=== PATIENT | male | born 1960 | race Caucasian/White ===

== ENCOUNTER 2022-11-24 12:36 | Inpatient (IN) | payer MEDICAID ==
[~2022-11-24] VITALS: Ht 175.3 cm; Wt 80.3 kg
[2022-11-24 12:49] VITALS: BP 118/67
[2022-11-24] MEDS ORDERED: ACETAMINOPHEN EXTRA STRENGTH 500 MG TAB PO ONE (13:10)
[2022-11-24] MEDS ORDERED: ALBUTEROL SULFATE/IPRATROPIU 3 ML SOL IH ONE (13:10)
[2022-11-24] MEDS ORDERED: KETOROLAC 30 MG/ML VIAL IM ONE (13:10)
[2022-11-24 13:33] LABS: BASOPHILS % (AUTO) 0.2 % (0.0-2.0); EOSINOPHILS % (AUTO) 0.1 % (0.0-4.0); HEMATOCRIT 43.3 % (36-52); HEMOGLOBIN 14.1 g/dL (12.0-18.0); LYMPHOCYTES % (AUTO) 4.6 % (20.5-51.1); MEAN CORPUSCULAR HEMOGLOBIN 27 pg (27-31); MEAN CORPUSCULAR HGB CONC 33 g/dL (33-37); MEAN CORPUSCULAR VOLUME 81.2 fL (80-94); MONOCYTES # (AUTO) 1.4 K/uL (0.8-1.0); MONOCYTES % (AUTO) 6.3 % (1.7-9.3); NEUTROPHILS # (AUTO) 20.1 K/uL (1.8-7.7); NEUTROPHILS % (AUTO) 88.8 % (42.2-75.2); PLATELET COUNT (AUTO) 414 K/uL (140-450); RED BLOOD CELL COUNT(AUTO) 5.33 MIL/uL (4.20-6.10); RED CELL DISTRIBUTION WIDTH 14.3 % (11.6-13.7); WHITE BLOOD COUNT (AUTO) 22.7 K/uL (4.8-10.8)
--- NOTE | 2022-11-24 13:54 | NUR ---
Pt bibs for chest pain starting this morning. Pt states he has ache/sore pain, especially when he coughs. Pain is ache/sore, when coughing or with movement, non radiating, /10. Pt is a/o x 4, vss, no ss of acute distress, breathing equal and unlabored, speech clear. Labs obtained and handed to [employer] conservation laborer.
[2022-11-24] MEDS ORDERED: NACL 0.9% 1,000 ML IV ONE ×2 (14:05→15:15)
[2022-11-24] MEDS ORDERED: AZITHROMYCIN 500 MG in DEXTROSE 5% 250 ML IV ONE (14:05)
--- NOTE | 2022-11-24 14:07 | NUR ---
Covid swab obtained/labeled and walked to lab.
[2022-11-24 14:27] LABS: ALBUMIN 3.5 g/dL (3.4-5.0); CARBON DIOXIDE 29.4 mmol/L (21-32); CREATININE 1.2 mg/dL (0.6-1.3); POTASSIUM 4.4 mmol/L (3.5-5.1); TOTAL BILIRUBIN 0.8 mg/dL (0.0-1.0)
[2022-11-24] MEDS ORDERED: AZITHROMYCIN 500 MG INJ VIAL IV ONE (15:21)
[2022-11-24] MEDS ORDERED: cefTRIAXone 1,000 MG VIAL ONE (15:21)
[2022-11-24 15:59] LABS: BARBITURATE, URINE NEGATIVE ng/ml (NEG <=200); CANNABINOID, URINE POSITIVE ng/mL (NEG <=50)
[2022-11-24 16:00] LABS: BENZODIAZEPINE, URINE NEGATIVE ng/mL (NEG <=200); COCAINE, URINE NEGATIVE ng/mL (NEG <=300); OPIATE, URINE NEGATIVE ng/mL (NEG <=2000); PHENCYCLIDINE SCREEN,URINE NEGATIVE ng/mL (NEG <=25)
[2022-11-24] MEDS ORDERED: DOCUSATE SODIUM 100 MG GELCAP PO PRN (16:15)
[2022-11-24] MEDS ORDERED: POTASSIUM CHLORIDE 10 MEQ TABER PO PRN (16:15)
[2022-11-24] MEDS ORDERED: ZOLPIDEM 5 MG TAB PO PRN (16:15)
[2022-11-24] MEDS ORDERED: guaiFENesin DM 200/20 MG-10 ML 10 ML UDC PO PRN (16:15)
[2022-11-24] MEDS ORDERED: ONDANSETRON 4 MG/2 ML VIAL IM/IVP PRN (16:15)
[2022-11-24] MEDS ORDERED: ALBUTEROL SULFATE/IPRATROPIU 3 ML SOL IH PRN (16:15)
[2022-11-24 17:01] LABS: PROTHROMBIN TIME 10.9 secs (10.8-13.4)
[2022-11-24] MEDS: NACL 0.9% 1,000 ML IV SCH (18:14)
[2022-11-24 18:42] LABS: CHOL/HDL RATIO 2.4 (1-4.5); MAGNESIUM 1.5 mg/dL (1.8-2.4); PHOSPHORUS 3.8 mg/dL (2.5-4.9); THYROID STIMULATING HORMONE 0.5 uIU/mL (0.34-3.74)
[2022-11-24 19:15] LABS: FREE T4 (FREE THYROXINE) 0.91 ng/dL (0.76-1.46)
--- NOTE | 2022-11-24 19:31 | NUR ---
PT IN ROOOM RESTING, ALERT AND RESPONSIVE
[2022-11-24] MEDS: ALBUTEROL SULFATE/IPRATROPIU 3 ML SOL IH SCH (19:46)
--- NOTE | 2022-11-24 21:00 | NUR ---
pt in room resting on monitoring analyst
--- NOTE | 2022-11-24 21:15 | NUR ---
DAUGHTER OF PT (SHANKAR CASTAÑEDA) # [phone]
--- NOTE | 2022-11-24 21:44 | NUR ---
report given to maryjo tucker
--- NOTE | 2022-11-24 21:55 | NUR ---
Received report from ED RN HC. Bed ready for pt.
--- NOTE | 2022-11-24 22:22 | NUR ---
Patient will be admitted to care of Dr. Johnson. Admited to Tele. Will go to room 111B. Belongings list completed. Report to Alessio CHAVIS.
[2022-11-25] VITALS: BP 127/76
[2022-11-25] MEDS: NACL 0.9% 1,000 ML IV SCH ×2 (02:15→12:15)
[2022-11-25] MEDS ORDERED: MAG SULF 2000 MG/WATER PREMIX 50 ML IV PRN (02:30)
[2022-11-25] MEDS: ACETAMINOPHEN 325 MG TAB PO PRN (04:37)
--- NOTE | 2022-11-25 05:42 | NUR ---
IV SITE INFILTRATED, LEAKING, AND DISLODGED. ATTEMPTED X2 - BOTH FAILED. WILL ENDORSE TO DAY RN FOR F/U.
--- NOTE | 2022-11-25 05:48 | NUR ---
PT RECEIVED FROM ER ABOUT 2155. pT WAS GIVEN ONE DUO TX IN THE ER. NEXT TX DUE AT 0700. AT 2350 PATIENT COMPLAINED OF BEING SHORT OF BREATH AND WAS GIVEN A PRN TX. SHORTLY THERE AFTER PT FELL ASLEEP.
--- NOTE | 2022-11-25 06:26 | NUR ---
SL RE-ESTABLISHED TO R HAND W 20G ANGIOCATH W SINGLE ATTEMPT. PT TOLERATED PROCEDURE WELL.
[2022-11-25 07:27] LABS: ANION GAP 11.7 (8-16); CARBON DIOXIDE 27.1 mmol/L (21-32); CREATININE 1.1 mg/dL (0.6-1.3); POTASSIUM 3.8 mmol/L (3.5-5.1)
[2022-11-25 07:30] LABS: BASOPHILS % (AUTO) 0.1 % (0.0-2.0); EOSINOPHILS % (AUTO) 0.1 % (0.0-4.0); HEMOGLOBIN 13.4 g/dL (12.0-18.0); LYMPHOCYTES # (AUTO) 1.7 K/uL (2.0-11.5); LYMPHOCYTES % (AUTO) 6.7 % (20.5-51.1); MEAN CORPUSCULAR HEMOGLOBIN 27 pg (27-31); MEAN CORPUSCULAR HGB CONC 33 g/dL (33-37); MEAN CORPUSCULAR VOLUME 82.1 fL (80-94); MONOCYTES # (AUTO) 1.6 K/uL (0.8-1.0); MONOCYTES % (AUTO) 6.3 % (1.7-9.3); NEUTROPHILS # (AUTO) 21.5 K/uL (1.8-7.7); NEUTROPHILS % (AUTO) 86.8 % (42.2-75.2); PLATELET COUNT (AUTO) 394 K/uL (140-450); RED BLOOD CELL COUNT(AUTO) 4.99 MIL/uL (4.20-6.10); RED CELL DISTRIBUTION WIDTH 14.4 % (11.6-13.7)
[2022-11-25 07:46] VITALS: BP 141/87
[2022-11-25] MEDS: ALBUTEROL SULFATE/IPRATROPIU 3 ML SOL IH SCH ×3 (07:56→19:16)
[2022-11-25 08:19] LABS: WHITE BLOOD COUNT (AUTO) 24.8 K/uL (4.8-10.8)
--- NOTE | 2022-11-25 08:48 | NUR ---
PATIENT HAS BEEN SCREENED AND CATEGORIZED MODERATE NUTRITION RISK. PATIENT WILL BE SEEN WITHIN 3-5 DAYS OF ADMISSION. 11/24/22-11/29/[address]
[2022-11-25] MEDS: PANTOPRAZOLE 40 MG TABEC PO SCH (09:45)
[2022-11-25] MEDS: HYDROcodone/APAP 7.5/325 MG 1 TAB PO PRN ×2 (09:48→18:06)
[2022-11-25] MEDS ORDERED: ALBUTEROL SULFATE/IPRATROPIU 3 ML SOL IH PRN (10:25)
[2022-11-25 12:34] VITALS: BP 145/85
[2022-11-25] MEDS: AZITHROMYCIN 500 MG in DEXTROSE 5% 250 ML IV SCH (12:40)
--- NOTE | 2022-11-25 13:18 | NUR ---
ENCOURAGED PATIENT FOR DEEP BREATHING WITH INTERMITTENT COUGH DURING HHN THERAPY; STRONG NPC
[2022-11-25] MEDS ORDERED: NITROGLYCERIN 0.4 MG TAB SL PRN (14:15)
[2022-11-25] MEDS: methylPREDNISolone SS 40 MG/ML VIAL IVP SCH ×2 (14:40→20:43)
[2022-11-25] MEDS ORDERED: ATORVASTATIN 20 MG TAB PO SCH (17:00)
[2022-11-25 18:02] VITALS: BP 152/92
[2022-11-25] MEDS: METOPROLOL 25 MG TAB PO SCH (20:45)
[2022-11-25] MEDS ORDERED: NICOTINE TRANSD SYS 21 MG/24 HR PATCH TD ONE (22:15)
--- NOTE | 2022-11-25 22:24 | NUR ---
PT IS A SMOKER, REQUESTING FOR NICOTINE PATCH, NEW ORDER OBTAINED FROM DR MORRIS, NICOTINE PATCH 21 MG APPLIED TO LEFT DELTOID, INSTRUCTED TO OBTAIN SPUTUM FOR CULTURE, CONTAINER AT BEDSIDE.
[2022-11-26] VITALS: BP 134/82
[2022-11-26] MEDS: NACL 0.9% 1,000 ML IV SCH ×2 (01:18→08:15)
[2022-11-26 04:00] VITALS: BP 155/94
[2022-11-26] MEDS: ACETAMINOPHEN 325 MG TAB PO PRN (04:09)
[2022-11-26] MEDS: methylPREDNISolone SS 40 MG/ML VIAL IVP SCH ×2 (05:18→12:39)
[2022-11-26 07:18] LABS: BASOPHILS % (AUTO) 0.2 % (0.0-2.0); HEMOGLOBIN 14.4 g/dL (12.0-18.0); LYMPHOCYTES # (AUTO) 0.8 K/uL (2.0-11.5); LYMPHOCYTES % (AUTO) 4.1 % (20.5-51.1); MEAN CORPUSCULAR HEMOGLOBIN 27 pg (27-31); MEAN CORPUSCULAR HGB CONC 33 g/dL (33-37); MEAN CORPUSCULAR VOLUME 82.2 fL (80-94); MONOCYTES # (AUTO) 0.5 K/uL (0.8-1.0); MONOCYTES % (AUTO) 2.5 % (1.7-9.3); NEUTROPHILS # (AUTO) 17.9 K/uL (1.8-7.7); NEUTROPHILS % (AUTO) 93.2 % (42.2-75.2); PLATELET COUNT (AUTO) 431 K/uL (140-450); RED BLOOD CELL COUNT(AUTO) 5.35 MIL/uL (4.20-6.10); RED CELL DISTRIBUTION WIDTH 14.4 % (11.6-13.7); WHITE BLOOD COUNT (AUTO) 19.2 K/uL (4.8-10.8)
[2022-11-26 07:29] LABS: ANION GAP 14.7 (8-16); CARBON DIOXIDE 24.4 mmol/L (21-32); CREATININE 0.9 mg/dL (0.6-1.3); POTASSIUM 4.1 mmol/L (3.5-5.1)
--- NOTE | 2022-11-26 07:30 | NUR ---
RECEIVED REPORT FROM ANIMAL SCIENCE INSTRUCTOR. PT IN BED. AOX4, ABLE TO MAKE NEEDS KNOW. NO C/O PAIN, NO RESPIRATORY DISTRESS ON ROOM AIR. RIGO IV RUNNING IVF ORDERED. AMBULATORY TO BATHROOM. SR ON TELE
[2022-11-26 08:00] VITALS: BP 148/85
[2022-11-26] MEDS ORDERED: lisinopriL 5 MG TAB PO SCH (09:00)
[2022-11-26] MEDS ORDERED: NICOTINE TRANSD SYS 21 MG/24 HR PATCH TD SCH (09:00)
[2022-11-26] MEDS ORDERED: AZITHROMYCIN SUSP 200 MG/5 ML PO SCH (09:00)
[2022-11-26] MEDS ORDERED: ECOTRIN 81 MG TABEC PO SCH (09:00)
--- NOTE | 2022-11-26 10:00 | NUR ---
DUE MEDS GIVEN
[2022-11-26] MEDS: ALBUTEROL SULFATE/IPRATROPIU 3 ML SOL IH SCH (10:05)
[2022-11-26 10:06] LABS: T4 (THYROXINE) 6.1 ug/dL (4.5-12.0)
[2022-11-26] MEDS: METOPROLOL 25 MG TAB PO SCH (10:08)
[2022-11-26] MEDS: PANTOPRAZOLE 40 MG TABEC PO SCH (10:09)
--- NOTE | 2022-11-26 10:30 | NUR ---
SEEN EXAMINED BY DR CHAPA
[2022-11-26] MEDS: AZITHROMYCIN 500 MG in DEXTROSE 5% 250 ML IV SCH (11:53)
[2022-11-26] MEDS: HYDROcodone/APAP 7.5/325 MG 1 TAB PO PRN (11:53)
[2022-11-26 12:00] VITALS: BP 134/72
--- NOTE | 2022-11-26 12:00 | NUR ---
SEEN EXAMINED BY DR PRESSLEY, CLEARED FOR DISCHARGE
[2022-11-26] MEDS ORDERED: PRED20TA5 PO (12:48)
[2022-11-26] MEDS ORDERED: LEVO-481 PO (12:48)
--- NOTE | 2022-11-26 13:47 | NUR ---
Patient discharged with v/s stable. Written and verbal after care instructions given and explained. Patient alert, oriented and verbalized understanding of instructions. Ambulatory with steady gait. All questions addressed prior to discharge. ID band removed. Patient advised to follow up with PMD. Rx of LEVAQUIN AND PREDNISONE given. Patient educated on indication of medication including possible reaction and side effects. Opportunity to ask questions provided and answered.
--- NOTE | 2022-11-26 13:58 | NUR ---
STEPHIE ARRANGED FOR PT, ASSISTED TO ER PARKING LOT. PICKED UP BY STEPHIE TO HOME ADDRESS
--- NOTE | 2022-11-26 15:58 | NUR ---
SS ORDER: SS ORDER RECEIVED FOR PCP RESOURCES. MET WITH PATIENT AND PROVIDED PT WITH LOW COST CLINIC RESOURCES, WELL , [facility] PHONE NUMBER TO FIND CONTRACTED PCP FACILITIES. PT RECEPTIVE AND ACCEPTED RESOURCES PROVIDED.
== END 2022-11-26 13:55 | disposition home or self-care (01) | DRG 720 ==
LOC: MED 12:36 → MTU 15:41
PROVIDERS: ADMIT Family Medicine; ATTEND Family Medicine
DX: A41.9 Sepsis, unspecified organism (principal); J96.00 Acute respiratory failure, unspecified whether with hypoxia or hypercapnia; I50.43 Acute on chronic combined systolic (congestive) and diastolic (congestive) heart failure; J15.6 Pneumonia due to other Gram-negative bacteria; I11.0 Hypertensive heart disease with heart failure; F12.10 Cannabis abuse, uncomplicated; F15.10 Other stimulant abuse, uncomplicated; Z20.822 Contact with and (suspected) exposure to COVID-19; J44.1 Chronic obstructive pulmonary disease with (acute) exacerbation; J44.0 Chronic obstructive pulmonary disease with (acute) lower respiratory infection; Z72.0 Tobacco use; R09.1 Pleurisy
CPT/HCPCS: 36415; 36600; 71045; 71250; 80048; 80053; 80305; 82150; 82803; 83036; 83605; 83690; 83735; 83880; 84100; 84436; 84439; 84443; 84479; 84484; 85025; 85379; 85610; 85730; 87040; 87070; 87081; 87205; 93005; 94640; 96365; 96375; 99285; J0456; J0696; J2920; J3475; J7060; Q0092

== ENCOUNTER 2023-07-02 22:39 | Emergency (ER) | payer MEDICAID ==
[~2023-07-02] VITALS: Ht 175.3 cm; Wt 81.6 kg
[~2023-07-02 22:39] MED LIST: LEVO-481 PO; PRED20TA5 PO
[2023-07-02 22:45] VITALS: BP 140/75; PULSE 122; RESP 20; TEMP 98.6; O2SAT 100
[2023-07-03 00:28] VITALS: O2SAT 98
[2023-07-03 00:32] VITALS: TEMP 98.8
[2023-07-03] MEDS ORDERED: KETOROLAC 60 MG/2 ML VIAL IM ONE (01:05)
[2023-07-03] MEDS ORDERED: SULF-59 PO (01:17)
[2023-07-03] MEDS ORDERED: CEPH-588 PO (01:17)
[2023-07-03] MEDS ORDERED: IBUP-2213 PO (01:17)
[2023-07-03 01:39] VITALS: BP 129/80; PULSE 102; RESP 17; O2SAT 96
== END 2023-07-03 01:39 | disposition home or self-care (01) ==
LOC: MED 22:39
DX: L03.116 Cellulitis of left lower limb (principal); F12.90 Cannabis use, unspecified, uncomplicated; F15.90 Other stimulant use, unspecified, uncomplicated
CPT/HCPCS: 96372; 99283; J1885